=== PATIENT | male | born 1985 | race Caucasian/White ===

== ENCOUNTER 2017-07-24 16:26 | Emergency (ER) | payer BC ==
--- NOTE | 2017-07-24 17:44 | EDM.PDOC ---
ED HPI GENERAL MEDICAL PROBLEM - General Chief Complaint: Lower Extremity Injury/Pain Stated Complaint: RIGHT LEG PAIN Time Seen by Provider: 07/24/17 17:38 Source of Information: Reports: Patient History Limitations: Reports: No Limitations - History of Present Illness INITIAL COMMENTS - FREE TEXT/NARRATIVE: HISTORY AND PHYSICAL: []32-year-old male presenting with right inner thigh pain and exacerbation of his psoriasis the right foot History of Present Illness: []Patient has history of psoriasis the last few days it is flared up Red spot on his right inner thigh painful to touch Review of Systems: As per history of present illness and below otherwise all systems reviewed and negative. Past medical history: As per history of present illness and as reviewed below otherwise noncontributory. Surgical history: As per history of present illness and as reviewed below otherwise noncontributory. Social history: No reported history of drug or alcohol abuse. Family history: As per history of present illness and as reviewed below otherwise noncontributory. Physical exam: Alert and oriented gentleman answers questions well. This is without any shortness of breath is good affect skin is warm and dry HEENT: Atraumatic, normocehpalic, pupils reactive, negative for conjunctival pallor or scleral icterus, mucous membranes moist, throat clear, neck supple, nontender, trachea midline. Lungs: Clear to auscultation, breath sounds equal bilaterally, chest non tender. Heart: S1S2, regular, negative for clicks, rubs, or JVD. Abdomen: Soft, nondistended, nontender. Negative for masses or hepatossplenmegaly. Negative for costovertebral tenderness. Pelvis: Stable nontender. Genitourinary: Deferred. Rectal: Deferred Extremities: Erythematous area approximately 3 and half centimeters in diameter painful to touch is mildly warm no ingrown hairs will demarcated line right ankle extending down to the dorsum of his foot with thick plaque of psoriasis yellow exudate., negative for cords or calf pain. Neurovascular unremarkable. Neuro: Awake, alert, oriented. Cranial nerves II through XII unremarkable. Cerebellum unremarkable. Motor and sensory unremarkable throughout. Exam nonfocal. Diagnostics: [] Therapeutics: [] Impression: [#1 early cellulitis right inner thigh #2 exacerbation of psoriasis] Plan: [Discharge to home Cephalexin 500 3 times a day 10 days Moist heat to this thigh area 3 times a day Triamcinolone cream as directed If not improving in the next 2 days return for further evaluation or follow-up with your primary care provider in 2 days] Definitive disposition and diagnosis as appropriate pending reevaluation and review of above. Right Middle Leg Pain Score (Numeric/FACES): 4 - Related Data Allergies Allergy/AdvReac Type Severity Reaction Status Date / Time No Known Allergies Allergy Verified 07/24/17 17:01 Home Meds: Home Meds Cephalexin [IJD: Cephalexin] 500 mg PO .EVERY 8 HOURS #30 cap 07/24/17 [Rx] Triamcinolone Acetonide [Triamcinolone Acetonide 0.5%] 45 gm TOP BID #1 tube [Rx] Past Medical History - Past Health History Medical/Surgical History: Denies Medical/Surgical History - Infectious Disease History Infectious Disease History: Reports: Chicken Pox Social & Family History - Family History Family Medical History: Noncontributory - Tobacco Use Smoking Status *Q: Current Every Day Smoker Years of Tobacco use: 15 Packs/Tins Daily: 1 - Caffeine Use Caffeine Use: Reports: Coffee, Energy Drinks, Soda - Recreational Drug Use Recreational Drug Use: No Review of Systems - Review of Systems Review Of Systems: ROS reveals no pertinent complaints other than HPI. ED EXAM, GENERAL - Physical Exam Exam: See Below (See dictation) Course - Vital Signs Last Recorded V/S: Last Vital Signs Temp 36.0 C 07/24/17 16:58 Pulse 58 L 07/24/17 16:58 Resp 20 07/24/17 16:58 BP 132/70 07/24/17 16:58 Pulse Ox 99 07/24/17 16:58 Departure - Departure Time of Disposition: 17:41 Disposition: Home, Self-Care 01 Condition: Good Clinical Impression: Psoriasis Cellulitis Qualifiers: Site of cellulitis: extremity Site of cellulitis of extremity: lower extremity Laterality: right Qualified Code(s): L03.115 - Cellulitis of right lower limb - Discharge Information Prescriptions: Cephalexin [IJD: Cephalexin] 500 mg PO .EVERY 8 HOURS #30 cap Triamcinolone Acetonide [Triamcinolone Acetonide 0.5%] 45 gm TOP BID #1 tube Referrals: PCP,None [Primary Care Provider] - Additional Instructions: The following information is given to patients seen in the emergency department who are being discharged to home. This information is to outline your options for follow-up care. We provide all patients seen in our emergency department with a follow-up referral. The need for follow-up, as well as the timing and circumstances, are variable depending upon the specifics of your emergency department visit. If you don't have a primary care physician on staff, we will provide you with a referral. We always advise you to contact your personal physician following an emergency department visit to inform them of the circumstance of the visit and for follow-up with them and/or the need for any referrals to a consulting specialist. The emergency department will also refer you to a specialist when appropriate. This referral assures that you have the opportunity for followup care with a specialist. All of these measure are taken in an effort to provide you with optimal care, which includes your followup. Under all circumstances we always encourage you to contact your private physician who remains a resource for coordinating your care. When calling for followup care, please make the office aware that this follow-up is from your recent emergency room visit. If for any reason you are refused follow-up, please contact the [facility] emergency department at and asked to speak to the emergency department charge nurse. Follow-up with your primary care provider in the next 2 days Symptoms are not improving or worsening symptoms please return for reevaluation Prescriptions have been electronically sent to [facility]
== END 2017-07-24 18:04 | disposition home or self-care (01) ==
LOC: MW.ED 16:26
DX: L03.115 Cellulitis of right lower limb (principal); L40.9 Psoriasis, unspecified; F17.210 Nicotine dependence, cigarettes, uncomplicated
CPT/HCPCS: 99283

== ENCOUNTER 2022-07-03 06:10 | Emergency (ER) | payer SELFPAY ==
[2022-07-03] MEDS ORDERED: Ibuprofen 600 MG Tab PO ONE (06:41)
[2022-07-03] MEDS ORDERED: Cephalexin 500 MG Cap PO ONE (06:41)
== END 2022-07-03 07:00 | disposition home or self-care (01) ==
LOC: MW.ED 06:10
DX: K04.7 Periapical abscess without sinus (principal)
CPT/HCPCS: 99283; A9270